=== PATIENT | male | born 1950 | race Caucasian/White ===

== ENCOUNTER 2018-05-10 09:43 | Day surgery (SDC) | payer BC, MEDICARE, OTHER ==
[~2018-05-10] VITALS: Ht 167.6 cm; Wt 81.8 kg
[2018-05-10] MEDS ORDERED: CEFAZOLIN PMX 1GM/50ML 50 ML IVPB ONE (10:30)
[2018-05-10] MEDS ORDERED: SODIUM CHLORIDE 0.9% 1,000 ML IV SCH (10:30)
[2018-05-10 10:36] VITALS: BP 147/79
[2018-05-10] MEDS ORDERED: LOSA25TA25 PO (10:48)
[2018-05-10] MEDS ORDERED: DIGO125T PO (10:48)
[2018-05-10] MEDS ORDERED: CARV3.1212 PO (10:48)
[2018-05-10] MEDS ORDERED: SPIR25TA5 PO (10:48)
[2018-05-10] MEDS ORDERED: METF500T17 PO (10:48)
[2018-05-10] MEDS ORDERED: SIMV40TA3 PO (10:48)
[2018-05-10] MEDS ORDERED: OMEG-170 PO (10:48)
[2018-05-10] MEDS ORDERED: APIX5TAB PO (10:48)
[2018-05-10] MEDS ORDERED: ASCO500C2 PO (10:48)
[2018-05-10] MEDS ORDERED: ALLO100T30 PO (10:48)
[2018-05-10] MEDS ORDERED: FENTANYL PF 100 MCG/2ML ONE (11:31)
[2018-05-10] MEDS ORDERED: LIDOCAINE 1%, 20ML ONE (11:32)
[2018-05-10] MEDS ORDERED: MIDAZOLAM 1 MG/ML, 5ML ONE (11:32)
[2018-05-10] MEDS ORDERED: CEFAZOLIN PMX 1GM/50ML 50 ML ONE (11:32)
[2018-05-10] MEDS ORDERED: CEFAZOLIN 1,000 MG ONE (11:33)
[2018-05-10] MEDS ORDERED: HOLD MEDICATION MC PRN (13:30)
[2018-05-10] MEDS ORDERED: SODIUM CHLORIDE FLUSH 10ML SYR IVF SCH (21:00)
== END 2018-05-10 15:06 | disposition home or self-care (01) ==
LOC: CACL 09:43
PROVIDERS: ATTEND Internal Medicine Cardiovascular Disease
DX: Z45.02 Encounter for adjustment and management of automatic implantable cardiac defibrillator (principal); I48.91 Unspecified atrial fibrillation; I42.9 Cardiomyopathy, unspecified; E78.2 Mixed hyperlipidemia; Z79.01 Long term (current) use of anticoagulants
CPT/HCPCS: 33264; 93005; 99156; 99157; C1882; J0690; J2250; J3010; J3490